=== PATIENT | male | born 1955 | race Caucasian/White ===

== ENCOUNTER 2020-12-04 20:47 | Emergency (ER) | payer OTHER, SELFPAY ==
[~2020-12-04] VITALS: Ht 167.6 cm; Wt 72.6 kg
[2020-12-04] MEDS ORDERED: HYDROcodone/ACETAMIN 5-325 MG TAB (NORCO/ VICODIN) PO ONE (21:15)
[2020-12-04 21:29] LABS: BASOPHILS # (AUTO) 0.1 K/uL (0.0-0.2); BASOPHILS % (AUTO) 1.3 % (0.0-2.0); EOSINOPHILS # (AUTO) 0.1 K/uL (0.0-0.4); EOSINOPHILS % (AUTO) 3.1 % (0.0-4.0); HEMATOCRIT 36.7 % (36-54); HEMOGLOBIN 12.8 g/dL (14.0-18.0); LYMPHOCYTES # (AUTO) 1.2 K/uL (1.0-5.5); LYMPHOCYTES % (AUTO) 25.9 % (20.5-51.5); MEAN CORPUSCULAR HEMOGLOBIN 31 pg (27-31); MEAN CORPUSCULAR HGB CONC 35 % (32-36); MEAN CORPUSCULAR VOLUME 89 fL (79.0-98.0); MONOCYTES # (AUTO) 0.3 K/uL (0.0-1.0); MONOCYTES % (AUTO) 6.9 % (1.7-9.3); NEUTROPHILS # (AUTO) 2.8 K/uL (1.8-7.7); NEUTROPHILS % (AUTO) 62.8 % (40.0-70.0); PLATELET COUNT (AUTO) 251 K/uL (130-430); RED BLOOD CELL COUNT(AUTO) 4.11 MIL/uL (4.2-6.2); RED CELL DISTRIBUTION WIDTH 13.4 % (9.0-15.0); WHITE BLOOD COUNT (AUTO) 4.5 K/uL (4.8-10.8)
[2020-12-04 21:40] LABS: ANION GAP 8 (5-15); CALCIUM 8.9 mg/dL (8.4-11.0); CHLORIDE 105 mmol/L (98-107); CREATININE 1.18 mg/dL (0.55-1.30); GLUCOSE 108 mg/dL (70-99); POTASSIUM 3.9 mmol/L (3.5-5.1); SODIUM SERUM 143 mmol/L (136-145); UREA NITROGEN, BLOOD 18 mg/dL (8-21)
[2020-12-04 21:44] LABS: GFR AFRICAN AMERICAN 80 mL/min (>90)
[2020-12-04 21:45] LABS: ALANINE AMINOTRANSFERASE 12 U/L (12-78); ALBUMIN 3.2 g/dL (3.4-4.8); ALCOHOL, BLOOD 3 mg/dL (<10); ASPARTATE AMINOTRANSFERASE 18 U/L (10-37); TOTAL BILIRUBIN 0.4 mg/dL (0.0-1.0)
[2020-12-04] MEDS ORDERED: MULT-1100 PO (21:47)
[2020-12-04] MEDS ORDERED: CHOL200075 (21:47)
[2020-12-04] MEDS ORDERED: DIFL60OI TP (21:47)
[2020-12-04] MEDS ORDERED: ASCO500C18 PO (21:47)
[2020-12-04] MEDS ORDERED: DOCU-156 PO (21:47)
[2020-12-04] MEDS ORDERED: OMEP20CA15 PO (21:47)
[2020-12-04] MEDS ORDERED: SER100 PO (21:47)
[2020-12-04] MEDS ORDERED: ACET325C6 PO (21:47)
[2020-12-04] MEDS ORDERED: DIVA250T2 PO (21:47)
[2020-12-04 21:48] LABS: ACETAMINOPHEN < 1 ug/mL (1-30)
[2020-12-04 21:56] LABS: CHOLESTEROL 152 mg/dL (<200); HDL CHOLESTEROL 42 mg/dL (>45); LDL CHOLESTEROL 94 mg/dL (<100); TRIGLYCERIDES 128 mg/dL (30-150)
[2020-12-04 22:35] LABS: BILIRUBIN,URINE NEGATIVE (NEGATIVE); BLOOD, URINE NEGATIVE (NEGATIVE); CLARITY/URINE CLEAR (CLEAR); COLOR,URINE YELLOW (YELLOW); GLUCOSE,URINE NEGATIVE (NEGATIVE); KETONES,URINE NEGATIVE (NEGATIVE); LEUKOCYTE ESTERASE ,URINE NEGATIVE (NEGATIVE); NITRITE, URINE NEGATIVE (NEGATIVE); PROTEIN URINE NEGATIVE (NEGATIVE)
[2020-12-04 22:45] LABS: BARBITURATE, URINE NEGATIVE (NEG <=200); BENZODIAZEPINE, URINE NEGATIVE (NEG <=150); CANNABINOID, URINE NEGATIVE (NEG <=50); COCAINE, URINE NEGATIVE (NEG <=150); METHAMPHETAMINES SCREEN,URINE NEGATIVE (NEG <=500); OPIATE, URINE NEGATIVE (NEG <=100); PHENCYCLIDINE SCREEN,URINE NEGATIVE (NEG <=25); UR TRICYCLIC ANTIDEPRESSANTS NEGATIVE (NEG <=300); URINE AMPHETAMINE NEGATIVE (NEG <=500); URINE METHADONE NEGATIVE (NEG <=200); URINE OXYCODONE SCREEN NEGATIVE (NEG <=100); URINE PROPOXYPHENE SCREEN NEGATIVE (NEG <=300)
[2020-12-05 00:13] VITALS: BP_SYST 130
== END 2020-12-05 00:13 ==
LOC: SED 20:47
DX: F29 Unspecified psychosis not due to a substance or known physiological condition (principal); K40.90 Unilateral inguinal hernia, without obstruction or gangrene, not specified as recurrent; K21.9 Gastro-esophageal reflux disease without esophagitis; Z79.899 Other long term (current) drug therapy; Z20.822 Contact with and (suspected) exposure to COVID-19
CPT/HCPCS: 36415; 80053; 80061; 80307; 81003; 83036; 83605; 85025; 87081; 87426; 99285; G0480; G0481; G0482

== ENCOUNTER 2021-08-18 05:16 | Emergency (ER) | payer OTHER ==
[~2021-08-18] VITALS: Ht 167.6 cm; Wt 72.6 kg
[~2021-08-18 05:16] MED LIST: ACET325C6 PO; ASCO500C18 PO; CHOL200075; DIFL60OI TP; DIVA250T2 PO; DOCU-156 PO; MULT-1193 PO; OMEP20CA15 PO; SER100 PO
[2021-08-18 05:25] VITALS: BP_SYST 148
--- NOTE | 2021-08-18 05:42 | NUR ---
Note kannan in ED - 08/18/21 at 0543 by [email or web address] Placed in room 4 . Placed on epic [facility] specialists, blood pressure machine and pulse oximeter. To gown for exam. Side rails up. Report given to SEVERO.
--- NOTE | 2021-08-18 05:43 | NUR ---
Placed in room 4 . Placed oN blood pressure machine and pulse oximeter. To gown for exam. Side rails up. Report given to SEVERO.
[2021-08-18 06:49] LABS: BILIRUBIN,URINE NEGATIVE (NEGATIVE); BLOOD, URINE NEGATIVE (NEGATIVE); CLARITY/URINE CLEAR (CLEAR); COLOR,URINE YELLOW (YELLOW); GLUCOSE,URINE NEGATIVE (NEGATIVE); KETONES,URINE NEGATIVE (NEGATIVE); LEUKOCYTE ESTERASE ,URINE NEGATIVE (NEGATIVE); NITRITE, URINE NEGATIVE (NEGATIVE); PH,URINE 5.5 (5.0-8.0); PROTEIN URINE NEGATIVE (NEGATIVE); UROBILINOGEN,URINE 0.2 (0.2-1.0)
[2021-08-18 07:06] LABS: BASOPHILS # (AUTO) 0.1 K/uL (0.0-0.2); BASOPHILS % (AUTO) 1.2 % (0.0-2.0); EOSINOPHILS # (AUTO) 0.2 K/uL (0.0-0.4); EOSINOPHILS % (AUTO) 3.9 % (0.0-4.0); HEMATOCRIT 39.6 % (36-54); HEMOGLOBIN 13.5 g/dL (14.0-18.0); LYMPHOCYTES # (AUTO) 0.8 K/uL (1.0-5.5); LYMPHOCYTES % (AUTO) 18.5 % (20.5-51.5); MEAN CORPUSCULAR HEMOGLOBIN 31 pg (27-31); MEAN CORPUSCULAR HGB CONC 34 % (32-36); MEAN CORPUSCULAR VOLUME 91 fL (79.0-98.0); MONOCYTES # (AUTO) 0.3 K/uL (0.0-1.0); MONOCYTES % (AUTO) 7.7 % (1.7-9.3); NEUTROPHILS # (AUTO) 3.1 K/uL (1.8-7.7); NEUTROPHILS % (AUTO) 68.7 % (40.0-70.0); PLATELET COUNT (AUTO) 174 K/uL (130-430); RED BLOOD CELL COUNT(AUTO) 4.34 MIL/uL (4.2-6.2); RED CELL DISTRIBUTION WIDTH 13.9 % (9.0-15.0); WHITE BLOOD COUNT (AUTO) 4.5 K/uL (4.8-10.8)
[2021-08-18 07:08] LABS: BARBITURATE, URINE NEGATIVE (NEG <=200); BENZODIAZEPINE, URINE NEGATIVE (NEG <=150); CANNABINOID, URINE NEGATIVE (NEG <=50); COCAINE, URINE NEGATIVE (NEG <=150); METHAMPHETAMINES SCREEN,URINE NEGATIVE (NEG <=500); OPIATE, URINE NEGATIVE (NEG <=100); PHENCYCLIDINE SCREEN,URINE NEGATIVE (NEG <=25); UR TRICYCLIC ANTIDEPRESSANTS NEGATIVE (NEG <=300); URINE AMPHETAMINE NEGATIVE (NEG <=500); URINE METHADONE NEGATIVE (NEG <=200); URINE OXYCODONE SCREEN NEGATIVE (NEG <=100); URINE PROPOXYPHENE SCREEN NEGATIVE (NEG <=300)
[2021-08-18 07:18] LABS: CALCIUM 8.7 mg/dL (8.4-11.0); CREATININE 0.92 mg/dL (0.55-1.30); POTASSIUM 3.7 mmol/L (3.5-5.1)
--- NOTE | 2021-08-18 07:20 | NUR ---
Report received from [facility]
[2021-08-18 07:24] LABS: ALBUMIN 3.4 g/dL (3.4-4.8); TOTAL BILIRUBIN 0.7 mg/dL (0.0-1.0)
--- NOTE | 2021-08-18 10:08 | NUR ---
COVID SWAB COMPLETED AT THIS TIME.
--- NOTE | 2021-08-18 10:46 | NUR ---
PATIENT CONDITION GOES UNCHANGED, VSS, NO PAIN. PATIENT LAYING IN BED COOPERATIVE, DENIES SI OR HI OR HALLUCINATION HAVING BREAKFAST. PATIENT WAITING FOR CLEARANCE TO GO TO [facility]. PATIENT UPDATED ON PLAN OF CARE.
--- NOTE | 2021-08-18 10:48 | NUR ---
PATIENT MEDICALLY CLEAR AT THIS TIME
--- NOTE | 2021-08-18 12:21 | NUR ---
Patient calm and cooperative, patient denies pain, will continue to monitor. patient updated on plan of care. will continue to monitor the patient.
--- NOTE | 2021-08-18 13:47 | NUR ---
Patient up and ambulating through dept. states he is bored. patient back to room and cooperative. lunch ordered for patient.
--- NOTE | 2021-08-18 14:26 | NUR ---
patient eating lunch at bedside. patient calm and cooperative. patient denies SI and HI and hallucinations
--- NOTE | 2021-08-18 15:14 | NUR ---
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
--- NOTE | 2021-08-18 15:35 | NUR ---
Patient to be transferred to [facility] Is being transferred due to higher level of care. Receiving facility has accepting physician and available space. ER physician has signed transfer form. Patient or responsible libertarian has agreed to transfer and signed form. Patient belongings inventoried and will be sent with patient. Copy of nursing notes, lab reports, EKG, Physicians Orders and X-rays to be sent with patient. Report called to at receiving facility. Receiving physician is . ambulance service has been called for transfer. ETA is .
[2021-08-18 15:37] VITALS: BP_SYST 122
== END 2021-08-18 15:15 ==
LOC: SED 05:16
DX: R45.6 Violent behavior (principal); Z79.899 Other long term (current) drug therapy; Z20.822 Contact with and (suspected) exposure to COVID-19
CPT/HCPCS: 36415; 80053; 80307; 81003; 85025; 99283; 99285